=== PATIENT | male | born 1990 | race Caucasian/White ===

== ENCOUNTER 2020-06-17 15:52 | Emergency (ER) | payer SELFPAY ==
[2020-06-17 16:07] VITALS: BP 157/104; PULSE 90; RESP 20; TEMP 36.8; O2SAT 100
--- NOTE | 2020-06-17 17:09 | ED.GENADULT ---
HPI - General Adult General Chief complaint: Upper Respiratory Infection Stated complaint: fatigue/fever/clammy/ body aches/headache Time Seen by Provider: 06/17/20 17:09 Source: patient and RN notes reviewed Mode of arrival: ambulatory Limitations: no limitations History of Present Illness HPI narrative: 29-year-old male presents with complaints of flu-like symptoms, nausea, clammy, STEPHENS (not the WORST of his life), sinus congestion, and cough for the past 4 days. DayQuil and NyQuil without relief. Coughing increases with lying down. Rhinorrhea and nasal congestion. Exacerbating factor consist of cigarette smoke. Nausea without vomiting and abdominal pain. Tolerating po intake well. Denies chest pain, dyspnea, coughing up blood, difficulty swallowing, jaw pain, dental pain, facial pain, foreign body sensation, and rash. Remains active. The patient reports he have not been diagnosed with COVID-19. Tested on 06/07/20 with a NEGATIVE result. The patient reports he is not waiting for the results of a COVID-19 lab test. The patient reports he do not have fever, weakness, or myalgia. The patient reports he do not have a worsening cough or shortness of breath. Denies chest pain. The patient reports he do not have any sore throat, loss of taste, and diarrhea. Denies recent traveling. Denies concerns for COVID-19 or exposures been home with limited outdoor exposure except for essential household needs, work, and return home. At this time, patient is suspected of having COVID-19. Some parts of this dictation were generated by voice recognition software and may contain typographical and/or grammatical inaccuracies. Related Data Allergies Allergy/AdvReac Type Severity Reaction Status Date / Time Sulfa (Sulfonamide Allergy Hives Verified 06/17/20 16:29 Antibiotics) Review of Systems Review of Systems: Narrative: CONSTITUTIONAL: Denies fever, sweats. Complains of chills, fatigue. EYES: Denies visual changes, redness, discharge. ENT: Complains of rhinorrhea, congestion. Denies sore throat. otalgia. CARDIOVASCULAR: Denies chest pain, palpitations, edema. RESPIRATORY: Denies dyspnea, wheezing. Complains of dry cough. GASTROINTESTINAL: Denies abdominal pain, vomiting, diarrhea. Complains of nausea. GENITOURINARY: Denies dysuria, hematuria, abnormal discharge SKIN: Denies rash or itching. MUSCULOSKELETAL: Denies acute back pain or myalgia. Complains of body aches. NEUROLOGIC: Denies numbness or focal weakness. Complains of STEPHENS. PSYCHIATRIC: Denies anxiety or depression. All systems reviewed & are unremarkable except as noted in HPI and below. [facility] Past Medical History Medical History (Updated 06/18/20 @ 00:00 by Manish Moreno) Kidney stones Surgical History Surgical History (Updated 06/17/20 @ 20:19 by ALICIA Liu) History of adenoidectomy History of tonsillectomy Family History Family History (Updated 06/17/20 @ 20:20 by ALICIA Liu) Father Alive and well Mother Benign brain tumor Social History Social History (Updated 06/17/20 @ 20:21 by ALICIA Liu) Smoking packs per day: 0.5 Smoking cigarettes per day: 10.0 Years smoked: 8 Smoking pack-years: 4.00 Smoking status: Current every day smoker Tobacco type: cigarettes Second hand tobacco smoke exposure: No Alcohol intake: current Substance use: never Gender identity (if verbalized by the patient): Male Comments At time of signature, agree with nurse past medical, surgical, social, and family history. There is no relevant family history pertinent to the presenting complaint. Exam Narrative: Exam Narrative: GENERAL: This is a well-nourished, well-developed patient, in no apparent distress. Speaks in full sentences and ambulates with steady gait without dyspnea. HEAD: normocephalic, atraumatic. EYES: PERRL. Sclera clear/white. Vision is grossly intact. EARS: External ears normal, auditory
[2020-06-17 17:28] VITALS: BP 152/94
== END 2020-06-17 17:28 | disposition home or self-care (01) ==
PROVIDERS: Emergency Provider Nurse Practitioner Family
DX: B34.9 Viral infection, unspecified (principal); Z20.828 Contact with and (suspected) exposure to other viral communicable diseases; F17.210 Nicotine dependence, cigarettes, uncomplicated
CPT/HCPCS: 87081; 87804; 87880; 99213; G0463

== ENCOUNTER 2020-06-21 06:50 | Outpatient (NON) | payer OTHER, SELFPAY ==
[2020-06-21 19:48] LABS: SARS-CoV-2 RNA PCR Negative
== END 2020-06-21 06:51 ==
PROVIDERS: Visit Provider Nurse Practitioner Family
DX: Z20.828 Contact with and (suspected) exposure to other viral communicable diseases (principal); B34.9 Viral infection, unspecified
CPT/HCPCS: 87635; C9803; U0003

== ENCOUNTER 2020-10-08 14:10 | Emergency (ER) | payer SELFPAY ==
--- NOTE | 2020-10-08 15:10 | PC.NURSE ---
1415 noted provider spoke briefly with pt on phone and he informs her, prior to registration, that he has decided not to be seen because he is self pay. nurse did not speak to nurse, not observed by nurse.
== END 2020-10-08 14:15 | disposition left against medical advice (07) ==
LOC: EXPBETH 14:19
PROVIDERS: Emergency Provider Nurse Practitioner Family
DX: Z53.21 Procedure and treatment not carried out due to patient leaving prior to being seen by health care provider (principal)
CPT/HCPCS: 99199